=== PATIENT | male | born 1990 | race Caucasian/White ===

== ENCOUNTER 2020-07-27 19:44 | Emergency (ER) | payer BC, OTHER ==
[~2020-07-27] VITALS: Ht 177.8 cm; Wt 86.4 kg
--- NOTE | 2020-07-27 19:54 | ED GI ---
General Stated Complaint: FOOD STUCK IN THROAT Source of Information: Patient Exam Limitations: No Limitations History of Present Illness Date Seen by Provider: Jul 27, 2020 Time Seen by Provider: 19:45 Initial Comments Patient was eating some popcorn chicken just prior to arrival when he felt it " go into my lungs". He arrives to ER clutching his throat but breathing and retching. He did vomit in the waiting room. He felt like something got stuck last night as well. No history of GERD or esophageal food boluses or strictures. Does chew tobacco. The feels a little better at the time but still feels like there is something stuck in his throat. Timing/Duration: 1/2 Hour Severity/Quality: Severe Radiation: No Radiation Activities at Onset: None Associated Symptoms: Nausea/Vomiting Allergies and Home Medications Allergies Coded Allergies: No Known Drug Allergies (Unverified , 07/27/20) Patient Home Medication List Home Medication List Reviewed: Yes Review of Systems Review of Systems Constitutional: see HPI EENTM: No Symptoms Reported Respiratory: No Symptoms Reported Cardiovascular: No Symptoms Reported Gastrointestinal: See HPI Genitourinary: No Symptoms Reported Musculoskeletal: no symptoms reported Skin: no symptoms reported Psychiatric/Neurological: No Symptoms Reported Endocrine: No Symptoms Reported Hematologic/Lymphatic: No Symptoms Reported Physical Exam Vital Signs Capillary Refill : Height/Weight/BMI Height: '" Weight: lbs. oz. kg; BMI Method: General Appearance: WD/WN, no apparent distress, other (Swallows his own secretions, he is able to swallow water without regurgitation. He is able to swallow a GI cocktail without regurgitation. He has not drooling. There is no wheezing or stridor to suggest airway obstruction either. He did vomit a large amount of food particles/chunks in the waiting room. ) HEENT: PERRL/EOMI, normal ENT inspection Neck: non-tender, full range of motion Respiratory: no respiratory distress, no accessory muscle use Cardiovascular: regular rate, rhythm, no murmur Gastrointestinal: normal bowel sounds, non tender, soft Extremities: normal range of motion, non-tender Neurologic/Psychiatric: alert, normal mood/affect, oriented x 3 Skin: normal color, warm/dry Progress/Results/Core Measures Results/Orders My Orders Orders - BARON BA APRN Antacid Suspension (Mylanta Suspension (07/27/20 20:00) Lidocaine 2% Viscous 15 Ml (Xylocaine Vi (07/27/20 20:00) Lorazepam Injection (Ativan Injection) (07/27/20 20:00) Ed Iv/Invasive Line Start (07/27/20 19:52) Ct Chest Wo (07/27/20 20:01) Ondansetron Injection (Zofran Injectio (07/27/20 20:30) Ondansetron Injection (Zofran Injectio (07/27/20 20:15) Medications Given in ED Current Medications Medications Dose Ordered Sig/Shane Route Start Time Stop Time Status Last Admin Dose Admin Al Hydrox/Mg Hydrox/Simethicone 30 ml ONCE ONCE PO 07/27/20 20:00 07/27/20 20:01 DC 07/27/20 20:15 30 ML Lidocaine HCl 10 ml ONCE ONCE PO 07/27/20 20:00 07/27/20 20:01 DC 07/27/20 20:15 10 ML Lorazepam 0.5 mg ONCE PRN IVP 07/27/20 20:00 07/27/20 20:15 0.5 MG Ondansetron HCl 8 mg ONCE ONCE IVP 07/27/20 20:30 07/27/20 20:31 DC 07/27/20 20:22 8 MG Diagnostic Imaging Diagonstic Imaging: CT Departure Communication (Admissions) 2043-He does feel better at this time states that he almost feels like he is back to normal. He is not drooling he continues to sip on water without regurgitation and there is still no stridor or cough. He has not coughed at any point since he has been here. I spoke with Dr. Sewell who recommends that we can discharge home for outpatient follow-up for we can observe in the hospital overnight. Patient is not sure what he would like to do yet, offered him to just hang out here for about 30 minutes and see how he does. If the sensation comes back then we will admit, if he stays improved like this then he will go home. 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 2109-feeling better, would like to go on home. Impression Primary Impression: Esophageal spasm Disposition: HOME, SELF-CARE Condition: Improved Departure-Patient Inst. Decision time for Depature: 21:08 Referrals: OREN MOURA MD (PCP) Primary Care Physician BO SEWELL DO Patient Instructions: Dysphagia Add. Discharge Instructions: 1. Take an fmzj-npb-tvrikfc acid salesperson automobiles like omeprazole 2 tablets daily for the next 3 to 4 weeks. Try to reduce chewing tobacco. Return to ER for any worsening or recurrence. Soft diet such as pudding, bananas, mashed potatoes for the next 2 days. If you have any persistent symptoms give Dr. Sewell a call to discuss endoscopy where they can stick a camera down the esophagus to look for inflammation or strictures (narrowing). BARON BA APRN Jul 27, 2020 19:54
[2020-07-27] MEDS ORDERED: LORazepam INJ 2 MG/ML (ATIVAN) VIAL IVP PRN (20:00)
[2020-07-27] MEDS ORDERED: ANTACID SUSP 30 ML UDC (MYLANTA) PO ONE (20:00)
[2020-07-27] MEDS ORDERED: LIDOCAINE 2% VISCOUS 15 ML UDC PO ONE (20:00)
[2020-07-27] MEDS ORDERED: ONDANSETRON 4 MG/2 ML (SDV) Z0FRAN ONE (20:15)
[2020-07-27] MEDS ORDERED: ONDANSETRON 4 MG/2 ML (SDV) Z0FRAN IVP ONE (20:30)
--- NOTE | 2020-07-27 20:32 | Diagnostic Imaging Report ---
PROCEDURE: CT chest without contrast. TECHNIQUE: Multiple contiguous axial images were obtained through the chest without the use of intravenous contrast. Auto Exposure Controls were utilized during the CT exam to meet ALARA standards for radiation dose reduction. INDICATION: Choking, food caught in throat. COMPARISON: None. FINDINGS: The airway is clear including the trachea and the bronchi. No filling defect or debris is seen in the esophagus. There may be trace fluid in the distal esophagus. There is significant ingested material in the stomach. The heart is mildly large. There is a pericardial cyst near the apex of the heart measuring about 6.1 x 2.9 cm on axial imaging. There is no pericardial effusion. The aorta is normal in caliber. No mediastinal adenopathy is seen. There is no pleural effusion or pneumothorax. No focal consolidation is seen. There is a calcified granuloma in the left lung base. Imaged portions of the upper abdomen demonstrate no acute abnormality. No acute osseous abnormality is seen. IMPRESSION: 1. The airway is clear. There may be minimal fluid in the distal esophagus, but no solid structure or debris is seen. 2. Moderate-sized pericardial cyst. No pericardial effusion. Dictated by: Dictated on workstation # [id number]
[2020-07-27 21:15] VITALS: BP 126/89
== END 2020-07-27 21:15 | disposition home or self-care (01) ==
LOC: EDUNIT# 19:44 → ER 19:49
DX: K22.4 Dyskinesia of esophagus (principal)
CPT/HCPCS: 71250

== ENCOUNTER 2021-06-03 09:55 | Inpatient (IN) | payer OTHER ==
[~2021-06-03] VITALS: Ht 177 cm; Wt 99.0 kg
--- NOTE | 2021-06-03 10:12 | History & Physical ---
History of Present Illness History of Present Illness Reason for visit/HPI PT IS A 30 Y/O MALE WHO IS A PATIENT IN MY CLINIC. HE PRESENTED TO THE OFFICE TODAY WITH COMPLAINT OF SWELLING AND PAIN FROM A SORE IN HIS GROIN ON THE RIGHT. HE HAD A SIMILAR INFECTION ABOUT 3-4 WEEKS AGO - WAS TOLD IT WAS MRSA AND HE WAS GIVEN ORAL ANTIBIOTICS WHICH CAUSED THE LESION TO RESOLVE COMPLETELY. PAYAL REPORTS THAT HE STARTED TO HAVE AN INGROWN HAIR IN HIS GROIN ON THE RIGHT A ND THEN IT QUICKLY INCREASED IN SIZE AND DRAINED A LITTLE THEN THIS MORNING IT WAS SIGNIFICANTLY LARGER AND MORE PAINFUL. HE WAS EVALUATED IN THE OFFICE AND IT WAS DETERMINED THAT HE NEEDED IV ANTIBIOTICS FOR TREATMENT OF HIS INFECTION. Date of Admission 06/03/2021 Date Seen by a Provider: Jun 03, 2021 Time Seen by a Provider: 18:41 I consulted on this patient on 06/03/21 10:12 Attending Physician Sanket Song MD Admitting Physician Sanket Song MD Consult DR CHARLES Allergies and Home Medications Allergies Coded Allergies: No Known Drug Allergies (Unverified , 07/27/20) Patient Home Medication List Home Medication List Reviewed: Yes Dextroamphetamine/Amphetamine (Amphetamine Salts 15 mg Tablet) 15 Mg Tablet, 15 MG PO TID, (Reported) Entered as Reported by: ZION LYNNE on 06/03/211621 Last Action: Held Escitalopram Oxalate (Escitalopram Oxalate) 20 Mg Tablet, 20 MG PO HS, (Reported) Entered as Reported by: ZION LYNNE on 06/03/211621 Last Action: Converted Ibuprofen (Ibuprofen) 200 Mg Tablet, 400-600 MG PO Q8H PRN for PAIN-MILD (1-4), (Reported) Entered as Reported by: ZION LYNNE on 06/03/211621 Last Action: Held Past Qbkvzgc-Ylcweu-Njkjkn Hx Patient Social History Marrital Status: single Number of Children: 0 Number of living children: 0 Living Status: LIVES IN HOME WITH HIS DOG 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[employer]) Tobacco Use?: No Use of E-Cig and/or Vaping dev: No Seasonal Allergies Seasonal Allergies: No Current Status Advance Directives: No Communicates: Verbally Primary Language: Cook Islander Preferred Spoken Language: [place] Islander Is interpretation needed?: No Implanted or Applied Medical D: None Past Medical History Currently Using CPAP: No Currently Using BIPAP: No Sexually Transmitted Disease: No HIV/AIDS: No Loss of Vision: Denies Hearing Impairment: Denies Did You Recieve Any Treatments: No ADD/ADHD, Depression Family Medical History Reviewed and Corrections made Heart Disease, Hypertension Review of Systems Constitutional: No chills, No diaphoresis, No fever, No malaise; weakness EENTM: No hoarseness, No throat pain Respiratory: No cough, No dyspnea on exertion, No short of breath Cardiovascular: no symptoms reported Gastrointestinal: No abdominal pain, No constipation, No diarrhea, No nausea, No vomiting Genitourinary: no symptoms reported Musculoskeletal: no symptoms reported Skin: other (ERYTHEMA AND SPREADING HARDNESS TO RIGHT GROIN WITH PUSTULE) Psychiatric/Neurological: Anxiety, Depressed All Other Systems Reviewed Negative Unless Noted: Yes Physical Exam Vital Signs Vital Signs - First Documented 06/03/21 15:30 Temp 36.3 Pulse 77 Resp 20 B/P (MAP) 126/64 (84) Pulse Ox 97 O2 Delivery Room Air Capillary Refill : Height, Weight, BMI Height: '" Weight: lbs. oz. kg; 27.00 BMI Method: General Appearance: No Apparent Distress, WD/WN Eyes: Bilateral Eye Normal Inspection, Bilateral Eye PERRL, Bilateral Eye EOMI HEENT: PERRL/EOMI, Pharynx Normal Neck: Full Range of Motion, Non Tender, Supple Respiratory: Chest Non Tender, Lungs Clear, Normal Breath Sounds, No Respiratory Distress Cardiovascular: Regular Rate, Rhythm, No Edema, Normal Peripheral Pulses Gastrointestinal: Normal Bowel Sounds, No Organomegaly, No Pulsatile Mass, Non Tender, Soft Rectal: Deferred Back: Normal Inspection, No Vertebral Tenderness Extremity: Normal Capillary Refill, Normal Range of Motion, Non Tender, No Calf Tenderness, No Pedal Edema Neurologic/Psychiatric: Alert, Oriented x3, No Motor/Sensory Deficits, Normal Mood/Affect, crane chaser II-XII Norm as Tested Skin: Normal Color, Warm/Dry Lymphatic: No Adenopathy Assessment/Plan Assessment and Plan ABSCESS AND CELLULITIS OF RIGHT GROIN HX OF MRSA ANXIETY/DEPRESSION ADHD PAIN IN RIGHT GROIN ABSCESS AND CELLULITIS OF RIGHT GROIN WITH HX OF HX OF MRSA - IV VANCOMYCIN, PHARMACY TO DOSE BASED ON TROUGH. - MONITOR LABS, RENAL FUNCTION - WAITING ON CULTURE REPORT TREAT FOR PRESUMED COLONIZATION OF MRSA WITH MUPIROCIN ANXIETY/DEPRESSION - RESTART SSRI ADHD - HOLD HOME REGIMEN AT THIS TIME. PAIN IN RIGHT GROIN - IV MORPHINE - WAS Q2 HOURS ON ADMISSION - WILL CHANGE TO IV Q1 HOUR AND ADD HYDROCODONE PRN ORALLY FOR UNCONTROLLED PAIN - WILL EVENTUALLY TRANSITION TO ORAL HYDROCODONE ON DC. DVT PROPHYLAXIS WITH LOVENOX AND SCD'S GI PROPHYLAXIS WITH PPI AND PROBIOTICS Admission Diagnosis ABSCESS AND CELLULITIS OF RIGHT GROIN HX OF MRSA ANXIETY/DEPRESSION ADHD PAIN IN RIGHT GROIN Admission Status: Inpatient Order (span 2 midnights) Reason for Inpatient Admission: INPT ADMISSION FOR AT LEAST 48 TO 72 HOURS DEPENDING ON HIS CULTURE REPORT. SANKET SONG MD Jun 03, 2021 10:12
[2021-06-03] MEDS ORDERED: PHARMACY TO DOSE IV SCH (10:15)
[2021-06-03] MEDS ORDERED: PANTOPRAZOLE 40 MG (PROTONIX) VIAL IV NR (10:44)
[2021-06-03] MEDS: morphine INJ 4 MG/ML 1 ML (VIAL/SYRINGE) IVP PRN ×5 (11:30→20:26)
[2021-06-03] MEDS: ENOXAPARIN 40 MG/0.4 ML (LOVENOX) SYR SC SCH (11:31)
[2021-06-03] MEDS ORDERED: VANCOMYCIN 2000 MG/NS 500 ML IVPB IV NR ×2 (13:00)
--- NOTE | 2021-06-03 13:43 | Consultation - Surgery ---
ANALY ROMERO MED STUDENT 06/03/21 1343: History of Present Illness History of Present Illness Patient Consulted On(shirley/time) 06/03/21 13:36 Date Seen by Provider: Jun 03, 2021 Time Seen by Provider: 13:30 Reason for Visit: Abscess History of Present Illness Mr. Dover is a 30yo male patient of Dr. Song who was admitted to the hospital today due an abscess in his inguinal area that is presumed to be MRSA. He states that early in April he had some sores on his leg and in his armpit, he went to urgent care and they swabbed him and he was found to have MRSA. He received bactrim shots at the time and went through a course of abx, after which it did resolve. Yesterday morning he states he had a small bump on his pubic area that he thought was an ingrown hair. He squeezed it a bit and got some pus out of it. States that today it is much worse and has grown a lot. He saw Dr. Song who admitted him to [facility] today. He describes the lesion as painful, red, and hot. Swollen, pain about an 8-9 before morphine, has shooting pain when touched. He tried squeezing some pus out of it and using some triple abx ointment but no improvement. Touching it in any way makes it worse. He does complain of some chills last night but no fever. Denies nausea, vomiting, CP, SOB, abdominal pain, bowel or bladder changes, pain or swelling in the legs or feet. He has only had this once before in early April when he was able to clear it with the antibiotics. Allergies and Home Medications Allergies Coded Allergies: No Known Drug Allergies (Unverified , 07/27/20) Past Baskcey-Lbwjws-Jjdkmk Hx Patient Social History Smoking Status: Never a Smoker (Currently uses chewing tobacco) Type Used: Smokeless Tobacco 2nd Hand Smoke Exposure: No Recent Hopitalizations: No Alcohol Use?: No Have you traveled recently?: No Immunizations Up To Date Date of Influenza Vaccine: May 25, 2021 Seasonal Allergies Seasonal Allergies: No Surgeries History of Surgeries: Yes (ACL REPAIR) Surgeries: Orthopedic (ACL L Knee) Respiratory History of Respiratory Disorde: No Cardiovascular History of Cardiac Disorders: No Neurological History of Neurological Disord: No Genitourinary History of Genitourinary Disor: No Gastrointestinal History of Gastrointestinal Di: No Musculoskeletal History of Musculoskeletal Dis: Yes (ACL REPAIR ) Cancer History of Cancer: No Psychosocial History of Psychiatric Problem: Yes Behavioral Health Disorders: ADD/ADHD, Depression Integumentary History of Skin or Integumenta: No Family Medical History Significant Family History: Cancer (Throat Cancer in father), Hypertension Review of Systems-General Constitutional: chills; No dizziness, No fever EENTM: No hearing loss, No vision loss Respiratory: No cough, No phlegm, No short of breath Gastrointestinal: No abdominal pain, No constipation, No diarrhea, No melena, No nausea, No vomiting Genitourinary: No dysuria, No frequency, No hematuria Musculoskeletal: other (Denies leg pain or swelling) Skin: lesions (R groin) Psychiatric/Neurological: Denies Headache Physical Exam-General Problems Physical Exam Vital Signs Capillary Refill : General Appearance: WD/WN, no apparent distress HEENT: pharynx normal (moist) Respiratory: chest non-tender, lungs clear, normal breath sounds, no respiratory distress, no accessory muscle use Cardiovascular: regular rate, rhythm, no edema, no murmur Peripheral Pulses: 2+ Dorsalis Pedis (R), 2+ Left Dors-Pedis (L), 2+ Radial Pulses (R), 2+ Radial Pulses (L) Gastrointestinal: normal bowel sounds, non tender, soft Extremities: non-tender, normal inspection, no pedal edema, no calf tenderness Neurologic/Psychiatric: alert, normal mood/affect, oriented x 3 Skin: normal color, warm/dry, other (on R inguinal area there is an area of swelling and fluctuance about the size of a golfball. Is red and hot, painful to touch.) Assessment/Plan Assessment/Plan Assessment/Plan R inguinal cyst History of MRSA Patient would likely benefit from I&D of lesion, will do at bedside. It will need to be packed. He is currently on Vancomycin. Is on morphine for pain and he states it was working well for him. No fever, no sign of systemic infection at this point but will monitor. Will stay for a couple days of ABX. DEREJE CHARLES DO 06/03/21 154: History of Present Illness History of Present Illness Time Seen by Provider: 13:38 History of Present Illness Surgery asked to consult regarding right inguinal abscess. Pt is a 30 yo male with hx of MRSA infections of his skin. States yesterday he had "a white bump" in the groin area and tried to "pop" it. This morning he woke up and it was very red and much larger. Pain was rated as 9 out of 10, only improved with pain medications. He ate a sausage biscuit around 9am this morning. Stated the area was "hot and swollen". Allergies and Home Medications Allergies Coded Allergies: No Known Drug Allergies (Unverified , 07/27/20) Patient Home Medication List Home Medication List Reviewed: Yes Past Amtqure-Cpiueh-Vessex Hx Patient Social History Smoking Status: Never a Smoker (Currently uses chewing tobacco) Type Used: Smokeless Tobacco Alcohol Use?: No Surgeries History of Surgeries: Yes Surgeries: Orthopedic (ACL L Knee) Respiratory History of Respiratory Disorde: No Cardiovascular History of Cardiac Disorders: No Neurological History of Neurological Disord: No Reproductive System Hx Reproductive Disorders: No Genitourinary History of Genitourinary Disor: No Gastrointestinal History of Gastrointestinal Di: No Musculoskeletal History of Musculoskeletal Dis: No Endocrine History of Endocrine Disorders: No HEENT History of HEENT Disorders: No Loss of Vision: Denies Hearing Impairment: Denies Cancer History of Cancer: No Psychosocial History of Psychiatric Problem: Yes Behavioral Health Disorders: ADD/ADHD, Depression Integumentary History of Skin or Integumenta: Yes (MRSA infections) Family Medical History Significant Family History: Cancer (Throat Cancer in father) Review of Systems-General Constitutional: chills; No dizziness, No fever EENTM: No hearing loss, No vision loss Respiratory: No cough, No phlegm, No short of breath Cardiovascular: No chest pain, No palpitations Gastrointestinal: No abdominal pain, No constipation, No diarrhea, No melena, No nausea, No vomiting Genitourinary: No dysuria, No frequency, No hematuria Musculoskeletal: No joint pain, No joint swelling Skin: lesions (R groin) Psychiatric/Neurological: Depressed; Denies Headache, Denies Seizure Physical Exam-General Problems Physical Exam General Appearance: WD/WN, no apparent distress Eyes: Bilateral Eye PERRL, Bilateral Eye EOMI HEENT: pharynx normal (moist); No scleral icterus (R), No scleral icterus (L) Neck: non-tender, supple Respiratory: lungs clear, normal breath sounds, no respiratory distress, no accessory muscle use Cardiovascular: regular rate, rhythm Gastrointestinal: normal bowel sounds, non tender, soft Extremities: non-tender, normal inspection, no pedal edema, no calf tenderness Neurologic/Psychiatric: director center II-XII nml as tested, alert, normal mood/affect, oriented x 3 Skin: normal color, warm/dry, other (on R inguinal area there is an area of swelling and fluctuance about the size of a golfball. Is red and hot, painful to touch.) Lymphatic: no adenopathy (neck or axilla) Assessment/Plan Assessment/Plan Assessment/Plan R inguinal Cellulitis/Abscess History of MRSA Patient would likely benefit from I&D of lesion, he ate and therefore can not do in the OR for 8 hours. Offered to do at bedside and he agreed; "let's get this over with sooner". It will need to be packed. He is currently on Vancomycin. Is on morphine for pain and he states it was working well for him. No fever, no sign of systemic infection at this point but will monitor. Will probably stay for a couple days of IV ABX. Will get wound culture. Supervisory-Addendum Brief Verification & Attestation Participated in pt care: history, MDM, physical Personally performed: exam, history, MDM, supervision of care Care discussed with: Medical Student Procedures: n/a Verification and Attestation of Medical Student E/M Service A medical student performed and documented this service. I then reviewed and verified all information documented by the medical student and made modifications to such information, when appropriate. I personally performed a physical exam, medical decision making and then discussed any differences between the notes and made revisions as necessary to create one note. Dereje Charles , 06/03/21 , 15:43 ANALY ROMERO MED STUDENT Jun 03, 2021 13:43 DEREJE CHARLES DO Jun 03, 2021 15:41
[2021-06-03] MEDS ORDERED: LIDOCAINE 1% INJ 20 ML 20 ML VIAL ONE (13:49)
[2021-06-03 14:39] LABS: BASOPHILS % (AUTO) 0 % (0-10); EOSINOPHILS # (AUTO) 0.2 10^3/uL (0.0-0.3); EOSINOPHILS % (AUTO) 2 % (0-10); HEMATOCRIT 40 % (40-54); HEMOGLOBIN 14.1 g/dL (13.3-17.7); LYMPHOCYTES # (AUTO) 1.6 10^3/uL (1.0-4.0); LYMPHOCYTES % (AUTO) 16 % (12-44); MEAN CORPUSCULAR HEMOGLOBIN 32 pg (25-34); MEAN CORPUSCULAR HGB CONC 35 g/dL (32-36); MEAN CORPUSCULAR VOLUME 91 fL (80-99); MEAN PLATELET VOLUME 10.1 fL (9.0-12.2); MONOCYTES # (AUTO) 0.9 10^3/uL (0.0-1.0); MONOCYTES % (AUTO) 9 % (0-12); NEUTROPHILS # (AUTO) 7.2 10^3/uL (1.8-7.8); NEUTROPHILS % (AUTO) 73 % (42-75); PLATELET COUNT 293 10^3/uL (130-400)
[2021-06-03 14:58] LABS: ALBUMIN 4.3 GM/DL (3.2-4.5); BILIRUBIN,TOTAL 0.5 MG/DL (0.1-1.0); CALCIUM 9.3 MG/DL (8.5-10.1); CREATININE SERUM 0.68 MG/DL (0.60-1.30); POTASSIUM 3.8 MMOL/L (3.6-5.0); PROTHROMBIN TIME PATIENT 13.1 SEC (12.2-14.7); TOTAL PROTEIN 7.5 GM/DL (6.4-8.2)
[2021-06-03] MEDS: LACTOBACILLUS ACIDOPHILUS (PROBIOTIC) CAPSULE PO SCH ×2 (15:00→20:26)
[2021-06-03 15:30] VITALS: BP 126/64
--- NOTE | 2021-06-03 15:48 | Progress Note-Post Operative ---
Post-Operative Progess Note Surgeon (s)/Director Of Casework (s) Surgeon BO CHARLES DO Director Of Casework: none Pre-Operative Diagnosis right inguinal cellulitis/abscess Post-Operative Diagnosis same pending culture Procedure & Operative Findings Date of Procedure 06/03/21 Procedure Performed/Findings I&D with packing Anesthesia Type local lidocaine Estimated Blood Loss Estimated blood loss (mL): less than 5ml Specimens/Packing Specimens Removed wound culture Packin BO CHARLES DO Jun 03, 2021 15:48
[2021-06-03] MEDS ORDERED: DEXT15TA PO (16:22)
[2021-06-03] MEDS ORDERED: ESCI20TA39 PO (16:22)
[2021-06-03] MEDS ORDERED: IBUP-2473 PO (16:22)
[2021-06-03] MEDS ORDERED: morphine INJ 4 MG/ML 1 ML (VIAL/SYRINGE) ONE (20:19)
[2021-06-03 20:25] VITALS: BP 116/69
[2021-06-03] MEDS: VANCOMYCIN 1500 MG/NS 500 ML IVPB IV SCH ×2 (20:26)
[2021-06-03] MEDS: MUPIROCIN 2% OINT 22 GM (BACTROBAN) TUBE NSEACH SCH (21:15)
[2021-06-03 23:25] VITALS: BP 122/73
[2021-06-04] MEDS: morphine INJ 4 MG/ML 1 ML (VIAL/SYRINGE) IVP PRN ×6 (00:24→23:41)
--- NOTE | 2021-06-04 01:24 | OPERATIVE REPORT ---
DATE OF SERVICE: 06/03/2021 PREOPERATIVE DIAGNOSIS: Right inguinal cellulitis, abscess. POSTOPERATIVE DIAGNOSIS: Right inguinal cellulitis, abscess, pending culture. PROCEDURE: Incision and drainage with packing of right inguinal abscess. ANESTHESIA: Local lidocaine. BLOOD LOSS: Less than 5 mL. SPECIMEN: Wound culture. FLUIDS: Minimal. POSTOPERATIVE CONDITION: Stable. INDICATION FOR PROCEDURE: The patient is a 30-year-old male, who has right inguinal abscess, cellulitis, had gotten worse overnight. He had eaten breakfast this morning, but since therefore could not go to the OR for 8 hours, wanted to have this done sooner rather than later. FINDINGS: The patient had scant purulent fluid in the right inguinal area. Culture obtained. PROCEDURE NOTE: After informed consent was obtained, the patient was in his bed in the room. He was sterilely prepped and draped in normal fashion. Local lidocaine was used to infiltrate the skin. There was a small scar from his previous attempt to trying to drain this. While we were injecting lidocaine, there was some what looked like whitish fluid coming out with some of the lidocaine. Once we got a good application of the lidocaine, had some blanching of the skin and then elected to make a stab incision with #11 blade, carried down through the skin into subcutaneous tissue, cut out some of this very scant purulent fluid, used a wound culture tube to get a culture. This was then sent down to pathology, broke up a little bit of loculation with blunt dissection. Did not really get very much purulent fluid and there was a little bit of bleeding, packed with half inch iodoform packing and then pressure dressing placed. Area was cleaned and dried. The patient tolerated the procedure. He was given some morphine prior to the procedure for pain control. Job ID: [id number] DocumentID: [id number] Dictated Date: 06/03/2021 15:47:47 Clinical Nurse Date: 06/04/2021 01:24:08 Dictated By: BO CHARLES DO
[2021-06-04 03:55] VITALS: BP 121/69
[2021-06-04 07:25] LABS: HEMATOCRIT 42 % (40-54); HEMOGLOBIN 14.5 g/dL (13.3-17.7); MEAN CORPUSCULAR HEMOGLOBIN 32 pg (25-34); MEAN CORPUSCULAR HGB CONC 34 g/dL (32-36); MEAN CORPUSCULAR VOLUME 92 fL (80-99); MEAN PLATELET VOLUME 9.9 fL (9.0-12.2); PLATELET COUNT 253 10^3/uL (130-400); WHITE BLOOD COUNT 6.7 10^3/uL (4.3-11.0)
[2021-06-04 07:32] LABS: ALBUMIN 4.1 GM/DL (3.2-4.5)
[2021-06-04 07:33] LABS: POTASSIUM 3.9 MMOL/L (3.6-5.0)
[2021-06-04 07:34] LABS: CALCIUM 9.5 MG/DL (8.5-10.1)
[2021-06-04 07:35] LABS: TOTAL PROTEIN 7.3 GM/DL (6.4-8.2)
[2021-06-04 07:37] LABS: BILIRUBIN,TOTAL 0.8 MG/DL (0.1-1.0)
[2021-06-04 07:39] LABS: CREATININE SERUM 0.71 MG/DL (0.60-1.30)
--- NOTE | 2021-06-04 08:29 | Progress Note - Surgery ---
ANALY ROMERO MED STUDENT 06/04/21 0829: Subjective Date Seen by a Provider: Jun 04, 2021 Time Seen by a Provider: 08:10 Subjective/Events-last exam Mr. Dover is sitting up in bed this morning. States he is still having some pain in his groin, about the same as yesterday. Wound has been dressed so he has not looked at it to see if it is getting better. He is eating and drinking with no nausea and vomiting. He is peeing without difficulty, had not had BM yet but he said this is normal for him. He ambulates, states he has some pain in his groin when he walks. He has no concerns today. Review of Systems General: No Chills HEENT: No Head Aches, No Visual Changes Pulmonary: No Dyspnea, No Cough Cardiovascular: No: Chest Pain, Palpitations, Edema Gastrointestinal: No: Nausea, Vomiting, Abdominal Pain, Diarrhea, Constipation, Melena Genitourinary: No Dysuria, No Incontinence, No Hematuria Musculoskeletal: No: leg pain, foot pain Neurological: No: Weakness Objective Exam Vital Signs Date Time Temp Pulse Resp B/P (MAP) Pulse Ox O2 Delivery O2 Flow Rate FiO2 06/04/21 03:55 37.0 76 16 121/69 (86) 98 Room Air 06/03/21 23:25 37.2 73 16 122/73 (89) 97 Room Air 06/03/21 20:25 36.0 65 20 116/69 (85) 97 Room Air 06/03/21 20:15 97 Room Air 06/03/21 15:30 36.3 77 20 126/64 (84) 97 Room Air I & O 06/04/21 07:00 Intake Total 3045 ml Balance 3045 ml Capillary Refill : General Appearance: No Apparent Distress, WD/WN HEENT: PERRL/EOMI, Pharynx Normal Respiratory: Chest Non Tender, Lungs Clear, Normal Breath Sounds, No Respiratory Distress Cardiovascular: Regular Rate, Rhythm, No Edema, Normal Peripheral Pulses Peripheral Pulses: 2+ Dorsalis Pedis (R), 2+ Left Dors-Pedis (L), 2+ Radial Pulses (R), 2+ Radial Pulses (L) Gastrointestinal: normal bowel sounds, non tender, soft Extremity: Normal Capillary Refill, Non Tender, No Calf Tenderness, No Pedal Edema Neurologic/Psychiatric: Alert, Oriented x3, Normal Mood/Affect Skin: Normal Color, Warm/Dry, Other (Cyst on groin is bandaged. There is quite a bit of blood with minimal pus in the [place]. Still a good amount of redness and swelling. brick tender to the touch. Is still packed. ) Lymphatic: No Adenopathy Results Lab Laboratory Tests 06/03/21 14:28: White Blood Count 10.0, Red Blood Count 4.42, Hemoglobin 14.1, Hematocrit 40, Mean Corpuscular Volume 91, Mean Corpuscular Hemoglobin 32, Mean Corpuscular Hemoglobin Concent 35, Red Cell Distribution Width 13.1, Platelet Count 293, Mean Platelet Volume 10.1, Immature Granulocyte % (Auto) 0, Neutrophils (%) (Auto) 73, Lymphocytes (%) (Auto) 16, Monocytes (%) (Auto) 9, Eosinophils (%) (Auto) 2, Basophils (%) (Auto) 0, Neutrophils # (Auto) 7.2, Lymphocytes # (Auto) 1.6, Monocytes # (Auto) 0.9, Eosinophils # (Auto) 0.2, Basophils # (Auto) 0.0, Immature Granulocyte # (Auto) 0.0, Prothrombin Time 13.1, INR Comment 1.0, Sodium Level 138, Potassium Level 3.8, Chloride Level 105, Carbon Dioxide Level 20L, Anion Gap 13, Blood Urea Nitrogen 14, Creatinine 0.68, Estimat Glomerular Filtration Rate 139, BUN/Creatinine Ratio 21, Glucose Level 90, Calcium Level 9.3, Corrected Calcium 9.1, Total Bilirubin 0.5, Aspartate Amino Transf (AST/SGOT) 19, Alanine Aminotransferase (ALT/SGPT) 37, Alkaline Phosphatase 83, Total Protein 7.5, Albumin 4.3 06/04/21 06:45: White Blood Count 6.7, Red Blood Count 4.59, Hemoglobin 14.5, Hematocrit 42, Mean Corpuscular Volume 92, Mean Corpuscular Hemoglobin 32, Mean Corpuscular Hemoglobin Concent 34, Red Cell Distribution Width 13.0, Platelet Count 253, Mean Platelet Volume 9.9, Sodium Level 137, Potassium Level 3.9, Chloride Level 103, Carbon Dioxide Level 24, Anion Gap 10, Blood Urea Nitrogen 10, Creatinine 0.71, Estimat Glomerular Filtration Rate 132, BUN/Creatinine Ratio 14, Glucose Level 86, Calcium Level 9.5, Corrected Calcium 9.4, Total Bilirubin 0.8, Aspartate Amino Transf (AST/SGOT) 51H, Alanine Aminotransferase (ALT/SGPT) 90H, Alkaline Phosphatase 85, Total Protein 7.3, Albumin 4.1 Assessment/Plan Assessment/Plan Assessment/Plan R inguinal Cellulitis/Abscess History of MRSA Continue dressing changes, and will re-pack today. Lesion looks about the same, but does not look any worse. He is still having some tenderness with it. He is on PRN morphine and hydrocodone for this. Still hasn't had a bowel movement but he states it is normal for him and suspects he will have one soon. Will monitor due to his pain meds but he is receiving stool softeners. He is currently on Vancomycin. No fever, no sign of systemic infection at this point but will monitor. Wound culture obtained yesterday, no results yet. Will need to stay a couple more days to receive ABX and wound care. DEREJE SEWELL DO 06/04/21 1305: Subjective Time Seen by a Provider: 11:12 Subjective/Events-last exam Pt seen and examined, states he thinks his pain is a little better. 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 ) Assessment/Plan Assessment/Plan Assessment/Plan R inguinal Cellulitis/Abscess History of MRSA Continue dressing changes and re-pack today. Lesion looks much better. He is still having some tenderness with it. He is on PRN morphine and hydrocodone for this. Continue Vancomycin and wound care. Supervisory-Addendum Brief Verification & Attestation Participated in pt care: history, MDM, physical Personally performed: exam, history, MDM, supervision of care Care discussed with: Medical Student Procedures: n/a Verification and Attestation of Medical Student E/M Service A medical student performed and documented this service. I then reviewed and verified all information documented by the medical student and made modifications to such information, when appropriate. I personally performed a physical exam, medical decision making and then discussed any differences between the notes and made revisions as necessary to create one note. Dereje Sewell , 06/04/21 , 13:05 ANALY ROMERO MED STUDENT Jun 04, 2021 08:29 DEREJE SEWELL DO Jun 04, 2021 13:05
[2021-06-04 08:51] VITALS: BP 118/56
[2021-06-04] MEDS: PANTOPRAZOLE 40 MG (PROTONIX) VIAL IV SCH (09:33)
[2021-06-04] MEDS: VANCOMYCIN 1500 MG/NS 500 ML IVPB IV SCH ×4 (09:33→21:05)
[2021-06-04] MEDS: MUPIROCIN 2% OINT 22 GM (BACTROBAN) TUBE NSEACH SCH ×2 (09:33→21:11)
[2021-06-04] MEDS: ENOXAPARIN 40 MG/0.4 ML (LOVENOX) SYR SC SCH (09:34)
[2021-06-04] MEDS: SENNA W/DOCUSATE (SENOKOT S) TABLET PO SCH (09:34)
[2021-06-04] MEDS: LACTOBACILLUS ACIDOPHILUS (PROBIOTIC) CAPSULE PO SCH ×3 (09:34→21:06)
--- NOTE | 2021-06-04 10:19 | Progress Note ---
Subjective Subjective Date Seen by Provider: Jun 04, 2021 Time Seen by Provider: 09:00 PT REPORTS THAT HIS GROIN IS A LITTLE BIT BETTER THAN ON ADMISSION. HE NOTES IMPROVED PAIN CONTROL. HE DENIES ABDOMINAL PAIN, NAUSEA, URINARY CONCERNS Review of Systems General: No Chills HEENT: No Head Aches, No Visual Changes Pulmonary: No Dyspnea, No Cough Cardiovascular: No: Chest Pain, Palpitations, Edema Gastrointestinal: No: Nausea, Vomiting, Abdominal Pain, Diarrhea, Constipation, Melena Genitourinary: No Dysuria, No Incontinence, No Hematuria Musculoskeletal: No: leg pain, foot pain Neurological: No: Weakness All Other Systems Reviewed All Other Systems Reviewed: Yes Objective Exam Vital Signs Vital Signs Date Time Temp Pulse Resp B/P (MAP) Pulse Ox O2 Delivery O2 Flow Rate FiO2 06/04/21 08:51 36.0 60 16 118/56 (76) 97 06/04/21 03:55 37.0 76 16 121/69 (86) 98 Room Air 06/03/21 23:25 37.2 73 16 122/73 (89) 97 Room Air 06/03/21 20:25 36.0 65 20 116/69 (85) 97 Room Air 06/03/21 20:15 97 Room Air 06/03/21 15:30 36.3 77 20 126/64 (84) 97 Room Air I & O 06/04/21 07:00 Intake Total 3045 ml Balance 3045 ml General Appearance: No Apparent Distress, WD/WN Eyes: Bilateral Eye Normal Inspection, Bilateral Eye PERRL, Bilateral Eye EOMI HEENT: PERRL/EOMI, Pharynx Normal Respiratory: Chest Non Tender, Lungs Clear, Normal Breath Sounds, No Respiratory Distress Cardiovascular: Regular Rate, Rhythm, No Edema, Normal Peripheral Pulses Gastrointestinal: Normal Bowel Sounds, No Organomegaly, No Pulsatile Mass, Non Tender, Soft Rectal: Deferred Extremity: Normal Capillary Refill, Non Tender, No Calf Tenderness, No Pedal Edema Neurologic/Psychiatric: Alert, Oriented x3, Normal Mood/Affect Skin: Warm/Dry, Other (BLOOD ON BANDAGE, WITH PACKING STILL IN PLACE IN RIGHT GROIN WOUND, ERYTHEMA SIGNIFICANTLY IMPROVED FROM ADMISSION, LESS TENDER THAN ON ADMISSION) Lymphatic: No Adenopathy Results Lab Laboratory Tests 06/03/21 14:28: White Blood Count 10.0, Red Blood Count 4.42, Hemoglobin 14.1, Hematocrit 40, Mean Corpuscular Volume 91, Mean Corpuscular Hemoglobin 32, Mean Corpuscular Hemoglobin Concent 35, Red Cell Distribution Width 13.1, Platelet Count 293, Mean Platelet Volume 10.1, Immature Granulocyte % (Auto) 0, Neutrophils (%) (Auto) 73, Lymphocytes (%) (Auto) 16, Monocytes (%) (Auto) 9, Eosinophils (%) (Auto) 2, Basophils (%) (Auto) 0, Neutrophils # (Auto) 7.2, Lymphocytes # (Auto) 1.6, Monocytes # (Auto) 0.9, Eosinophils # (Auto) 0.2, Basophils # (Auto) 0.0, Immature Granulocyte # (Auto) 0.0, Prothrombin Time 13.1, INR Comment 1.0, Sodium Level 138, Potassium Level 3.8, Chloride Level 105, Carbon Dioxide Level 20L, Anion Gap 13, Blood Urea Nitrogen 14, Creatinine 0.68, Estimat Glomerular Filtration Rate 139, BUN/Creatinine Ratio 21, Glucose Level 90, Calcium Level 9.3, Corrected Calcium 9.1, Total Bilirubin 0.5, Aspartate Amino Transf (AST/SGOT) 19, Alanine Aminotransferase (ALT/SGPT) 37, Alkaline Phosphatase 83, Total Protein 7.5, Albumin 4.3 06/04/21 06:45: White Blood Count 6.7, Red Blood Count 4.59, Hemoglobin 14.5, Hematocrit 42, Mean Corpuscular Volume 92, Mean Corpuscular Hemoglobin 32, Mean Corpuscular Hemoglobin Concent 34, Red Cell Distribution Width 13.0, Platelet Count 253, Mean Platelet Volume 9.9, Sodium Level 137, Potassium Level 3.9, Chloride Level 103, Carbon Dioxide Level 24, Anion Gap 10, Blood Urea Nitrogen 10, Creatinine 0.71, Estimat Glomerular Filtration Rate 132, BUN/Creatinine Ratio 14, Glucose Level 86, Calcium Level 9.5, Corrected Calcium 9.4, Total Bilirubin 0.8, Aspartate Amino Transf (AST/SGOT) 51H, Alanine Aminotransferase (ALT/SGPT) 90H, Alkaline Phosphatase 85, Total Protein 7.3, Albumin 4.1 Assessment/Plan Assessment/Plan Admission Dx ABSCESS AND CELLULITIS OF RIGHT GROIN HX OF MRSA ANXIETY/DEPRESSION ADHD PAIN IN RIGHT GROIN Assessment and Plan ABSCESS AND CELLULITIS OF RIGHT GROIN HX OF MRSA ANXIETY/DEPRESSION ADHD PAIN IN RIGHT GROIN ELEVATED LFT'S ABSCESS AND CELLULITIS OF RIGHT GROIN WITH HX OF HX OF MRSA - IV VANCOMYCIN, PHARMACY TO DOSE BASED ON TROUGH. - MONITOR LABS, RENAL FUNCTION - WAITING ON CULTURE REPORT TREAT FOR PRESUMED COLONIZATION OF MRSA WITH MUPIROCIN ANXIETY/DEPRESSION - RESTARTED SSRI ADHD - HOLD HOME REGIMEN AT THIS TIME. PAIN IN RIGHT GROIN - IV MORPHINE - WAS Q2 HOURS ON ADMISSION - WILL CHANGE TO IV Q1 HOUR AND ADD HYDROCODONE PRN ORALLY FOR UNCONTROLLED PAIN - WILL EVENTUALLY TRANSITION TO ORAL HYDROCODONE ON DC. ELEVATED LFT'S - MONITOR LABS IN MORNING DVT PROPHYLAXIS WITH LOVENOX AND SCD'S GI PROPHYLAXIS WITH PPI AND PROBIOTICS Admission Dx ABSCESS AND CELLULITIS OF RIGHT GROIN HX OF MRSA ANXIETY/DEPRESSION ADHD PAIN IN RIGHT GROIN Clinical Quality Measures Admission Status Admission Dx ABSCESS AND CELLULITIS OF RIGHT GROIN HX OF MRSA ANXIETY/DEPRESSION ADHD PAIN IN RIGHT GROIN SANKET RED MD Jun 04, 2021 10:19
[2021-06-04] MEDS: HYDROcodone/APAP 7.5 MG/325 MG (LORTAB, LORCET PLUS) TABLET PO PRN ×3 (10:32→22:42)
[2021-06-04 12:08] VITALS: BP 120/65
[2021-06-04 16:00] VITALS: BP 113/67
[2021-06-04] MEDS ORDERED: TROUGH ORDER-PHARMACY XX ONE (19:00)
[2021-06-04 20:00] VITALS: BP 125/70
[2021-06-05 00:55] VITALS: BP 128/71
[2021-06-05 06:28] LABS: HEMATOCRIT 40 % (40-54); MEAN CORPUSCULAR HEMOGLOBIN 32 pg (25-34); MEAN CORPUSCULAR HGB CONC 35 g/dL (32-36); MEAN CORPUSCULAR VOLUME 90 fL (80-99); MEAN PLATELET VOLUME 9.7 fL (9.0-12.2); PLATELET COUNT 259 10^3/uL (130-400); WHITE BLOOD COUNT 5.4 10^3/uL (4.3-11.0)
[2021-06-05 06:43] LABS: ALBUMIN 4.1 GM/DL (3.2-4.5); POTASSIUM 3.7 MMOL/L (3.6-5.0)
[2021-06-05 06:44] LABS: CALCIUM 9.7 MG/DL (8.5-10.1)
[2021-06-05 06:45] LABS: TOTAL PROTEIN 7.4 GM/DL (6.4-8.2)
[2021-06-05 06:47] LABS: BILIRUBIN,TOTAL 0.4 MG/DL (0.1-1.0)
[2021-06-05 06:49] LABS: CREATININE SERUM 0.69 MG/DL (0.60-1.30)
[2021-06-05] MEDS: HYDROcodone/APAP 7.5 MG/325 MG (LORTAB, LORCET PLUS) TABLET PO PRN ×3 (08:02→15:47)
[2021-06-05] MEDS: LACTOBACILLUS ACIDOPHILUS (PROBIOTIC) CAPSULE PO SCH ×2 (08:02→11:53)
[2021-06-05] MEDS: VANCOMYCIN 1500 MG/NS 500 ML IVPB IV SCH ×4 (08:02→17:49)
[2021-06-05] MEDS: PANTOPRAZOLE 40 MG (PROTONIX) VIAL IV SCH (08:03)
[2021-06-05] MEDS: MUPIROCIN 2% OINT 22 GM (BACTROBAN) TUBE NSEACH SCH (08:03)
[2021-06-05] MEDS: SENNA W/DOCUSATE (SENOKOT S) TABLET PO SCH (08:03)
--- NOTE | 2021-06-05 08:27 | Progress Note - Surgery ---
ANALY ROMERO MED STUDENT 06/05/21 0827: Subjective Date Seen by a Provider: Jun 05, 2021 Time Seen by a Provider: 07:40 Subjective/Events-last exam Mr. Dover is sleeping in bed this morning and is easily woken. He states that his pain is doing better, still comes on a bit sometimes but pain meds help a lot. Eating and drinking with no nausea or vomiting. No dysuria, no bowel concerns. Walking around just fine. He has a new dressing on his wound this morning. He states it looks better. Redness is continuing to go down, there is some blood and minor pus draining. Size has decreased a lot. Continuing on abx. Review of Systems General: No Chills HEENT: No Head Aches, No Visual Changes, No Ear Pain Pulmonary: No Dyspnea, No Cough Cardiovascular: No: Chest Pain, Palpitations, Edema Gastrointestinal: No: Nausea, Vomiting, Abdominal Pain, Diarrhea, Constipation, Melena Genitourinary: No Dysuria, No Hematuria Musculoskeletal: No: leg pain, foot pain Neurological: No: Weakness Pain and lesion in R groin Objective Exam Vital Signs Date Time Temp Pulse Resp B/P (MAP) Pulse Ox O2 Delivery O2 Flow Rate FiO2 06/05/21 00:55 36.6 72 18 128/71 (90) 96 Room Air 06/04/21 20:00 77 16 125/70 (88) 96 Room Air 06/04/21 20:00 Room Air 06/04/21 16:00 36.2 51 18 113/67 (82) 97 Room Air 06/04/21 12:08 36.0 59 16 120/65 (83) 97 Room Air 06/04/21 08:51 36.0 60 16 118/56 (76) 97 I & O 06/05/21 07:00 Intake Total 2932 ml Output Total 7 ml Balance 2925 ml Capillary Refill : General Appearance: No Apparent Distress, WD/WN HEENT: PERRL/EOMI, Pharynx Normal Respiratory: Chest Non Tender, Lungs Clear, Normal Breath Sounds, No Accessory Muscle Use, No Respiratory Distress Cardiovascular: Regular Rate, Rhythm, No Edema, No Murmur, Normal Peripheral Pulses Peripheral Pulses: 2+ Dorsalis Pedis (R), 2+ Left Dors-Pedis (L), 2+ Radial Pulses (R), 2+ Radial Pulses (L) Gastrointestinal: normal bowel sounds, non tender, soft Extremity: Normal Capillary Refill, Non Tender, No Calf Tenderness, No Pedal Edema Neurologic/Psychiatric: Alert, Oriented x3, Normal Mood/Affect Skin: Normal Color, Warm/Dry, Other (Area looks much better with very little redness; Swelling has decreased a bit, tender to touch. Mostly blood but some pus drainage. Dressed.) Results Lab Laboratory Tests 06/04/21 18:55: Vancomycin Level Trough 9.8L 06/05/21 06:19: White Blood Count 5.4, Red Blood Count 4.43, Hemoglobin 14.0, Hematocrit 40, Mean Corpuscular Volume 90, Mean Corpuscular Hemoglobin 32, Mean Corpuscular Hemoglobin Concent 35, Red Cell Distribution Width 12.3, Platelet Count 259, Ladi n Platelet Volume 9.7, Sodium Level 135, Potassium Level 3.7, Chloride Level 102, Carbon Dioxide Level 24, Anion Gap 9, Blood Urea Nitrogen 11, Creatinine 0.69, Estimat Glomerular Filtration Rate 137, BUN/Creatinine Ratio 16, Glucose Level 99, Calcium Level 9.7, Corrected Calcium 9.6, Total Bilirubin 0.4, Aspartate Amino Transf (AST/SGOT) 41H, Alanine Aminotransferase (ALT/SGPT) 96H, Alkaline Phosphatase 80, Total Protein 7.4, Albumin 4.1 Microbiology 06/03/21 Blood Culture - Preliminary, Resulted No growth Assessment/Plan Assessment/Plan Assessment/Plan R inguinal Cellulitis/Abscess History of MRSA Continue dressing changes and re-pack today. Lesion looks much better. He is still having some tenderness with it. He is on PRN morphine and hydrocodone for this. Continue Vancomycin and wound care. Can discharge as soon as he has completed his abx. BO CHARLES DO 06/05/21 1518: Supervisory-Addendum Brief Verification & Attestation Participated in pt care: other Personally performed: other Care discussed with: Medical Student Procedures: n/a I did not see pt, thought he had already left. Apparently he is waiting to get last dose of ABX, can follow up in my office. ANALY ROMERO MED STUDENT Jun 05, 2021 08:27 BO CHARLES DO Jun 05, 2021 15:18
[2021-06-05 08:47] VITALS: BP 131/76
[2021-06-05] MEDS: morphine INJ 4 MG/ML 1 ML (VIAL/SYRINGE) IVP PRN ×2 (09:50→17:49)
--- NOTE | 2021-06-05 10:50 | Discharge Summary ---
Diagnosis/Chief Complaint Date of Admission Jun 03, 2021 at 10:37 Date of Discharge Discharge Date: Jun 05, 2021 Discharge Time: 17:30 Admission Diagnosis Admission Diagnosis ABSCESS AND CELLULITIS OF RIGHT GROIN HX OF MRSA ANXIETY/DEPRESSION ADHD PAIN IN RIGHT GROIN Discharge Diagnosis ABSCESS AND CELLULITIS OF RIGHT GROIN MRSA ANXIETY/DEPRESSION ADHD PAIN IN RIGHT GROIN ELEVATED LFT'S Reason Hospital Visit PT IS A 30 Y/O MALE WHO IS A PATIENT IN MY CLINIC. HE PRESENTED TO THE OFFICE TODAY WITH COMPLAINT OF SWELLING AND PAIN FROM A SORE IN HIS GROIN ON THE RIGHT. HE HAD A SIMILAR INFECTION ABOUT 3-4 WEEKS AGO - WAS TOLD IT WAS MRSA AND HE WAS GIVEN ORAL ANTIBIOTICS WHICH CAUSED THE LESION TO RESOLVE COMPLETELY. PAYAL REPORTS THAT HE STARTED TO HAVE AN INGROWN HAIR IN HIS GROIN ON THE RIGHT AND THEN IT QUICKLY INCREASED IN SIZE AND DRAINED A LITTLE THEN THIS MORNING IT WAS SIGNIFICANTLY LARGER AND MORE PAINFUL. HE WAS EVALUATED IN THE OFFICE AND IT WAS DETERMINED THAT HE NEEDED IV ANTIBIOTICS FOR TREATMENT OF HIS INFECTION. Discharge Summary Procedures: I AND D AT BEDSIDE Consultations Discharge Physical Examination Allergies: Coded Allergies: No Known Drug Allergies (Unverified , 07/27/20) Vitals & I&Os Vital Signs Date Time Temp Pulse Resp B/P (MAP) Pulse Ox O2 Delivery O2 Flow Rate FiO2 06/05/21 08:47 36.6 70 18 131/76 (94) 97 Room Air General Appearance: Alert, Oriented X3, Cooperative, No Acute Distress HEENT: Atraumatic, PERRLA, Mucous Memb Moist/[place] Respiratory: Clear to Auscultation, Normal Air Movement Cardiovascular: Regular Rate Abdominal: Normal Bowel Sounds, Soft, No Tenderness Extremities: No Clubbing, No Cyanosis Skin: Other (WOUND RIGHT GROIN - IMPROVED SOFTNESS OF TISSUE, LESS ERYTHEMATOUS) Neuro: Cranial Nerves 3-12 NL Psych/Mental Status: Mental Status NL, Mood NL Hospital Course Was the Problem List Reviewed?: Yes ABSCESS AND CELLULITIS OF RIGHT GROIN HX OF MRSA ANXIETY/DEPRESSION ADHD PAIN IN RIGHT GROIN ELEVATED LFT'S ABSCESS AND CELLULITIS OF RIGHT GROIN WITH HX OF HX OF MRSA - IV VANCOMYCIN, PHARMACY TO DOSE BASED ON TROUGH. - MONITOR LABS, RENAL FUNCTION - CULTURE REPORT SHOWS MRSA SENSITIVE TO ORAL BACTRIM - WILL DC PT ON BACTRIM OUTPT, WILL NEED PACKED TUESDAY, TUESDAY AT DAY SURGERY AND TUESDAY AT [facility] OFFICE. TREAT FOR PRESUMED COLONIZATION OF MRSA WITH MUPIROCIN ANXIETY/DEPRESSION - RESTARTED SSRI ADHD - HOLD HOME REGIMEN AT THIS TIME. PAIN IN RIGHT GROIN - IV MORPHINE - WAS Q2 HOURS ON ADMISSION - WILL CHANGE TO IV Q1 HOUR AND ADD HYDROCODONE PRN ORALLY FOR UNCONTROLLED PAIN - WILL EVENTUALLY TRANSITION TO ORAL HYDROCODONE ON DC. ELEVATED LFT'S - MONITOR LABS IN MORNING DVT PROPHYLAXIS WITH LOVENOX AND SCD'S GI PROPHYLAXIS WITH PPI AND PROBIOTICS Pending Labs Laboratory Tests 06/05/21 06:19: White Blood Count 5.4, Red Blood Count 4.43, Hemoglobin 14.0, Hematocrit 40, Mean Corpuscular Volume 90, Mean Corpuscular Hemoglobin 32, Mean Corpuscular Hemoglobin Concent 35, Red Cell Distribution Width 12.3, Platelet Count 259, Mean Platelet Volume 9.7, Sodium Level 135, Potassium Level 3.7, Chloride Level 102, Carbon Dioxide Level 24, Anion Gap 9, Blood Urea Nitrogen 11, Creatinine 0.69, Estimat Glomerular Filtration Rate 137, BUN/Creatinine Ratio 16, Glucose Level 99, Calcium Level 9.7, Corrected Calcium 9.6, Total Bilirubin 0.4, Aspartate Amino Transf (AST/SGOT) 41, Alanine Aminotransferase (ALT/SGPT) 96, Alkaline Phosphatase 80, Total Protein 7.4, Albumin 4.1 Discharge Condition at discharge IMPROVED Instructions to patient/family Please see electronic discharge instructions given to patient. Discharge Medications Reviewed and agree with Discharge Medication list on patient's Discharge Instruction sheet SANKET RED MD Jun 05, 2021 10:50
[2021-06-05] MEDS ORDERED: MUPI22OI2 NSEACH (11:00)
[2021-06-05] MEDS ORDERED: SULF-221 PO (11:00)
[2021-06-05] MEDS ORDERED: LACT1CAP7 PO (11:00)
[2021-06-05] MEDS ORDERED: HYDR-34 PO (11:00)
--- NOTE | 2021-06-05 11:05 | Discharge Inst-Simple/Standard ---
Discharge Inst-Standard Reconcile Patient Problems Problems Reviewed?: Yes Discharge Medications New, Converted or Re-Newed RX: Transmitted to Pharmacy ([facility]) Patient Instructions/Follow Up Plan of Care/Instructions/FU: wound packing with iodoform gauze with 4 x 4 and abd pad over the 4 x 4 gauze - attempt to avoid use of tape to prevent excessive irritation of the skin - to be done tuesday and tuesday at the hospital in day surgery and on Tuesday06/08/[address] Sewell's office with his office to make futher plans on packing. 1 week follow up with [facility] Activity as Tolerated: Yes Discharge Diet: Regular Diet Health Concerns: infected abscess right groin Return to The Hospital For: any worsening in swelling, redness, pain or acute health concerns for lifethreatening illness or injury Medication List: Active Scripts Active Bactrim Ds Tablet (Sulfamethoxazole/Trimethoprim) 1 Each Tablet 1 Each PO BID Mupirocin 22 Gm Oint...g. 0 Gm NSEACH BID 5 Days HYDROcodone/APAP 7.5/325 TAB (Acetaminophen/Hydrocodone Bitart) 1 Ea Tablet 1 Ea PO Q4H PRN for pain from wound in groin Acidophilus-Pectin Capsule (Lactobacillus Acidophilus/Pect) 1 Each Capsule 1 Each PO TID Reported Ibuprofen 200 Mg Tablet 400-600 Mg PO Q8H PRN Escitalopram Oxalate 20 Mg Tablet 20 Mg PO HS Amphetamine Salts 15 mg Tablet (Dextroamphetamine/Amphetamine) 15 Mg Tablet 15 M g PO TID Lab results: Laboratory Tests Test 06/04/21 18:55 06/05/21 06:19 Range/Units Vancomycin Level Trough 9.8 L 10.0-20.0 UG/ML White Blood Count 5.4 4.3-11.0 10^3/uL Red Blood Count 4.43 4.30-5.52 10^6/uL Hemoglobin 14.0 13.3-17.7 g/dL Hematocrit 40 40-54 % Mean Corpuscular Volume 90 80-99 fL Mean Corpuscular Hemoglobin 32 25-34 pg Mean Corpuscular Hemoglobin Concent 35 32-36 g/dL Red Cell Distribution Width 12.3 10.0-14.5 % Platelet Count 259 130-400 10^3/uL Mean Platelet Volume 9.7 9.0-12.2 fL Sodium Level 135 135-145 MMOL/L Potassium Level 3.7 3.6-5.0 MMOL/L Chloride Level 102 98-107 MMOL/L Carbon Dioxide Level 24 21-32 MMOL/L Anion Gap 9 5-14 MMOL/L Blood Urea Nitrogen 11 7-18 MG/DL Creatinine 0.69 0.60-1.30 MG/DL Estimat Glomerular Filtration Rate 137 BUN/Creatinine Ratio 16 Glucose Level 99 70-105 MG/DL Calcium Level 9.7 8.5-10.1 MG/DL Corrected Calcium 9.6 8.5-10.1 MG/DL Total Bilirubin 0.4 0.1-1.0 MG/DL Aspartate Amino Transf (AST/SGOT) 41 H 5-34 U/L Alanine Aminotransferase (ALT/SGPT) 96 H 0-55 U/L Alkaline Phosphatase 80 40-136 U/L Total Protein 7.4 6.4-8.2 GM/DL Albumin 4.1 3.2-4.5 GM/DL SANKET RED MD Jun 05, 2021 11:05
[2021-06-05] MEDS: ENOXAPARIN 40 MG/0.4 ML (LOVENOX) SYR SC SCH (11:53)
[2021-06-05 16:00] VITALS: BP 120/77
[2021-06-05] MEDS ORDERED: VANCOMYCIN INJECTION 1,750 MG in NS IV 500 ML 500 ML IV SCH (17:00)
[2021-06-07] MEDS ORDERED: TROUGH ORDER-PHARMACY XX NR (04:00)
== END 2021-06-05 20:00 | disposition home or self-care (01) | DRG 581 ==
LOC: 4TH 10:37
PROVIDERS: ADMIT Family Medicine; ATTEND Family Medicine
PROC: 0Y950ZZ Drainage of Right Inguinal Region, Open Approach (ICD-10-PCS; principal; 2021-06-03)
DX: L02.214 Cutaneous abscess of groin (principal); L03.314 Cellulitis of groin; F41.9 Anxiety disorder, unspecified; F32.A Depression, unspecified; F90.9 Attention-deficit hyperactivity disorder, unspecified type; B95.62 Methicillin resistant Staphylococcus aureus infection as the cause of diseases classified elsewhere; R74.8 Abnormal levels of other serum enzymes; F17.220 Nicotine dependence, chewing tobacco, uncomplicated
CPT/HCPCS: 36415; 80053; 80202; 85025; 85027; 85610; 87040

== ENCOUNTER 2021-06-08 18:00 | Outpatient (RCR) | payer OTHER ==
[2021-06-06 13:39] VITALS: BP 0/0
[2021-06-07 17:30] VITALS: BP 139/86
[~2021-06-08] VITALS: Ht 177 cm; Wt 99.0 kg
[2021-06-08 17:50] VITALS: BP 133/78
[~2021-06-08 18:00] MED LIST: DEXT15TA PO; ESCI20TA39 PO; HYDR-34 PO; IBUP-2473 PO; LACT1CAP7 PO; MUPI22OI2 NSEACH; SULF-221 PO
== END 2021-06-29 | disposition home or self-care (01) ==
LOC: 4THo 18:00
PROVIDERS: ATTEND Family Medicine
DX: L03.314 Cellulitis of groin (principal); L02.214 Cutaneous abscess of groin
CPT/HCPCS: 99211; 99212

== ENCOUNTER 2021-07-05 09:49 | Outpatient (RCR) | payer OTHER ==
[~2021-07-05] VITALS: Ht 177.8 cm; Wt 99.0 kg
[2021-07-05 10:00] VITALS: BP 130/82
== END 2021-07-05 10:30 | disposition home or self-care (01) ==
LOC: SDC 09:49
PROVIDERS: ATTEND Surgery
DX: L02.214 Cutaneous abscess of groin (principal); L03.314 Cellulitis of groin
CPT/HCPCS: 99212

== ENCOUNTER 2022-01-16 17:14 | Emergency (ER) | payer OTHER ==
[~2022-01-16] VITALS: Ht 177 cm; Wt 91.0 kg
--- NOTE | 2022-01-16 17:43 | ED Abdominal Pain ---
General Chief Complaint: Abdominal/GI Problems Stated Complaint: ABD PAIN Nursing Triage Note: PT STATES LOW ABD PAIN FOR 2-3 DAYS, LAST BM 2 DAYS AGO, DENIES URINARY ISSUES, DENIES NV. Source of Information: Patient Exam Limitations: No Limitations (JOEY SEGURA MD) History of Present Illness Date Seen by Provider: Jan 16, 2022 Time Seen by Provider: 17:32 Initial Comments Patient is a 31-year-old male who presents to the emergency department today with a chief complaint of right lower quadrant abdominal pain onset 2 to 3 days ago. Patient has not taken anything for the pain. He states he has had decreased appetite but no actual nausea. He states in recent weeks he has been trying to eat less. He has been constipated since Tuesday. He normally has a bowel movement every day. He denies burning with urination urgency or frequency. No rashes. He points to the right lower quadrant as the source of his pain. He states it is present and a little bit worse when he walks. At rest he rates the pain at a "5". When he presses on it it is a "9". No fevers or chills. No prior surgeries on his abdomen. All other review of systems reviewed and negative except as stated. Timing/Duration: 2-3 Days Severity/Quality: Moderate, Aching Location: RLQ Radiation: LLQ Modifying Factors: Improves With Lying down; Worsens With Palpation Associated Symptoms: Other (decreased appetite) (JOEY SEGURA MD) Allergies and Home Medications Allergies Coded Allergies: No Known Drug Allergies (Unverified , 07/27/20) Patient Home Medication List Home Medication List Reviewed: Yes (JOEY SEGURA MD) Dextroamphetamine/Amphetamine (Amphetamine Salts 15 mg Tablet) 15 Mg Tablet, 15 MG PO TID, (Reported) Entered as Reported by: ZION LYNNE on 06/03/21 162 Escitalopram Oxalate (Escitalopram Oxalate) 20 Mg Tablet, 20 MG PO HS, (Reported) Entered as Reported by: ZION LYNNE on 06/03/21 1622 Hydrocodone Bit/Acetaminophen (HYDROcodone/APAP 7.5/325 TAB) 1 Ea Tablet, 1 EA PO Q4H PRN for PAIN-MODERATE (5-7) Prescribed by: SANKET RED on 06/05/21 1101 Ibuprofen (Ibuprofen) 200 Mg Tablet, 400-600 MG PO Q8H PRN for PAIN-MILD (1-4), (Reported) Entered as Reported by: ZION LYNNE on 06/03/21 1622 Lactobacillus Acidophilus/Pect (Acidophilus-Pectin Capsule) 1 Each Capsule, 1 EACH PO TID Prescribed by: SANKET RED on 06/05/21 1100 Mupirocin (Mupirocin) 22 Gm Oint...g., 0 GM NSEACH BID Prescribed by: SANKET RED on 06/05/21 1100 Sulfamethoxazole/Trimethoprim (Bactrim Ds Tablet) 1 Each Tablet, 1 EACH PO BID Prescribed by: SANKET RED on 06/05/21 1100 Review of Systems Review of Systems Constitutional: see HPI EENTM: No Symptoms Reported Respiratory: No Symptoms Reported Cardiovascular: No Symptoms Reported Gastrointestinal: Abdominal Pain, Poor Appetite Genitourinary: No Symptoms Reported Musculoskeletal: no symptoms reported Skin: no symptoms reported (JOEY SEGURA MD) All Other Systems Reviewed Negative Unless Noted: Yes (JOEY SEGURA MD) Past Lljqkpe-Ykgbrp-Sgyqkz Hx Patient Social History Tobacco Use?: No Substance use?: No Alcohol Use?: Yes Alcohol type: Beer Alcohol Frequency: Once in a while (JOEY SEGURA MD) Immunizations Up To Date First/Initial COVID19 Vaccinat: JULY 2020 Second COVID19 Vaccination Santos: AUGUST 2020 Third COVID19 Vaccination Date: APRIL 2021 (JOEY SEGURA MD) Seasonal Allergies Seasonal Allergies: No (JOEY SEGURA MD) Past Medical History Surgery/Hospitalization HX: ACL 10 YEARS AGO Surgeries: Yes Orthopedic Respiratory: No Currently Using CPAP: No Currently Using BIPAP: No Cardiac: No Neurological: No Reproductive Disorders: No Sexually Transmitted Disease: No HIV/AIDS: No Genitourinary: No Gastrointestinal: No Musculoskeletal: No Endocrine: No HEENT: No Loss of Vision: Denies Hearing Impairment: Denies Cancer: No Did You Recieve Any Treatments: No Psychosocial: Yes ADD/ADHD, Depression Integumentary: Yes (MRSA infections) (JOEY SEGURA MD) Family Medical History Heart Disease, Hypertension (JOEY SEGURA MD) Physical Exam Vital Signs Vital Signs - First Documented 01/16/22 17:21 Temp 36.5 Pulse 70 Resp 18 B/P (MAP) 127/75 (92) Pulse Ox 98 O2 Delivery Room Air (ASAEL ENGEL ) Vital Signs Capillary Refill : Less Than 3 Seconds (JOEY SEGURA MD) Height/Weight/BMI Height: '" Weight: lbs. oz. kg; 29.00 BMI Method: General Appearance: WD/WN, no apparent distress HEENT: PERRL/EOMI Respiratory: lungs clear, normal breath sounds, no respiratory distress, no accessory muscle use Cardiovascular: regular rate, rhythm Gastrointestinal: soft, abnormal bowel sounds (hypoactive), guarding, rebound, tenderness (RLQ @ Mcburney's point), other (neg Dominique's sign) Neurologic/Psychiatric: alert, normal mood/affect, oriented x 3 Skin: normal color, warm/dry; No rash (JOEY SEGURA MD) Progress/Results/Core Measures Results/Orders Lab Results Laboratory Tests Test 01/16/22 17:35 01/16/22 17:45 Range/Units Urine Color ORANGE Urine Clarity CLEAR Urine pH 6.0 5-9 Urine Specific [place] >=1.030 1.016-1.022 Urine Protein NEGATIVE NEGATIVE Urine Glucose (UA) NEGATIVE NEGATIVE Urine Ketones NEGATIVE NEGATIVE Urine Nitrite NEGATIVE NEGATIVE Urine Bilirubin NEGATIVE NEGATIVE Urine Urobilinogen 0.2 < = 1.0 MG/DL Urine Leukocyte Esterase NEGATIVE NEGATIVE Urine RBC (Auto) NEGATIVE NEGATIVE Urine RBC NONE /HPF Urine WBC 0-2 /HPF Urine Crystals NONE /LPF Urine Bacteria TRACE /HPF Urine Casts NONE /LPF Urine Mucus MODERATE H /LPF Urine Culture Indicated NO White Blood Count 8.8 4.3-11.0 10^3/uL Red Blood Count 4.88 4.30-5.52 10^6/uL Hemoglobin 15.2 13.3-17.7 g/dL Hematocrit 43 40-54 % Mean Corpuscular Volume 89 80-99 fL Mean Corpuscular Hemoglobin 31 25-34 pg Mean Corpuscular Hemoglobin Concent 35 32-36 g/dL Red Cell Distribution Width 12.7 10.0-14.5 % Platelet Count 268 130-400 10^3/uL Mean Platelet Volume 10.8 9.0-12.2 fL Immature Granulocyte % (Auto) 0 % Neutrophils (%) (Auto) 73 42-75 % Lymphocytes (%) (Auto) 15 12-44 % Monocytes (%) (Auto) 9 0-12 % Eosinophils (%) (Auto) 2 0-10 % Basophils (%) (Auto) 0 0-10 % Neutrophils # (Auto) 6.5 1.8-7.8 10^3/uL Lymphocytes # (Auto) 1.4 1.0-4.0 10^3/uL Monocytes # (Auto) 0.8 0.0-1.0 10^3/uL Eosinophils # (Auto) 0.2 0.0-0.3 10^3/uL Basophils # (Auto) 0.0 0.0-0.1 10^3/uL Immature Granulocyte # (Auto) 0.0 0.0-0.1 10^3/uL Percent Immature Platelet Fraction 5.1 0.0-7.6 % Sodium Level 138 135-145 MMOL/L Potassium Level 4.2 3.6-5.0 MMOL/L Chloride Level 104 98-107 MMOL/L Carbon Dioxide Level 20 L 21-32 MMOL/L Anion Gap 14 5-14 MMOL/L Blood Urea Nitrogen 15 7-18 MG/DL Creatinine 0.92 0.60-1.30 MG/DL Estimat Glomerular Filtration Rate 115 BUN/Creatinine Ratio 16 Glucose Level 119 H 70-105 MG/DL Calcium Level 9.7 8.5-10.1 MG/DL (ASAEL EGNEL DO) My Orders Orders - ASAEL ENGEL DO Ua Culture If Indicated (01/16/22 17:56) (ASAEL ENGEL DO) Medications Given in ED Current Medications Medications Dose Ordered Sig/Shane Route Start Time Stop Time Status Last Admin Dose Admin Iohexol 100 ml ONCE ONCE IV 01/16/22 18:00 01/16/22 18:01 DC 01/16/22 18:13 100 ML Ketorolac Tromethamine 15 mg ONCE ONCE IVP 01/16/22 17:45 01/16/22 17:46 DC 01/16/22 17:49 15 MG Ondansetron HCl 4 mg ONCE ONCE IVP 01/16/22 17:45 01/16/22 17:46 DC 01/16/22 17:50 4 MG Sodium Chloride 100 ml ONCE ONCE IV 01/16/22 18:00 01/16/22 18:01 DC 01/16/22 18:13 80 ML (ASAEL ENGEL DO) Vital Signs/I&O 01/16/22 01/16/22 17:21 17:49 Temp 36.5 36.5 Pulse 70 Resp 18 B/P (MAP) 127/75 (92) Pulse Ox 98 O2 Delivery Room Air (ASAEL ENGEL DO) Blood Pressure Mean: 92 Progress Progress Note : Progress Note 1800--ASSUMED CARE FROM DR. SEGURA, CT PENDING. PT HAS BEEN GIVEN TORADOL, WHICH HAS HELPED SOME WITH PAIN. DISCUSSED INCIDENTAL FINDING OF CYST-LIKE STRUCTURE AT [facility] OF HEART, PT IS AWARE, IT WAS NOTED ON PREVIOUS CT SCAN. PT HAS NO CARDIAC COMPLAINTS (ASAEL ENGEL DO) Diagnostic Imaging Comments CT ABDOMEN/PELVIS--PER RADIOLOGIST REPORT AT 1854 FINDINGS: LOWER THORAX: 6.2 x 2.6 cm somewhat crescentic mass at the ventricular cardiac apex favors a cyst, perhaps pericardial cyst. Heart size borderline. Lung bases are clear of infiltrate. LIVER: Unremarkable. GALLBLADDER: Slightly contracted, otherwise unremarkable. SPLEEN: Unremarkable. PANCREAS: Unremarkable. ADRENAL GLANDS: Unremarkable. KIDNEYS: Normal configuration. No calcification or obstruction. ABDOMINAL AORTA: Unremarkable, nonaneurysmal. GASTROINTESTINAL TRACT: Stomach contains a moderate amount of retained gastric contents. No small bowel obstruction. Colon largely decompressed. Normal appendix is located in the right lower quadrant. There is rather prominent focal inflammatory change adjacent to the sigmoid colon greatest towards the left of midline. Questioned colonic wall thickening in this region. Definitive inflamed diverticulum is not suggested. Small amount of pelvic fluid. Fluid does extend across midline to the right. URINARY BLADDER: Relatively decompressed. REPRODUCTIVE: Unremarkable. OSSEOUS STRUCTURES: No acute abnormality. OTHER: None. IMPRESSION: 1. Rather prominent inflammatory change of left pelvis, immediately adjacent sigmoid colon. Imaging features somewhat indeterminate may very well reflect epiploic meningitis. However, the possibility of focal segmental colitis or less likely diverticulitis not excluded. Small amount of fluid is noted likely reactive changes. No definitive drainable abscess collection at this time. 2. Negative for appendicitis. Reviewed: Reviewed by Me (ASAEL ENGEL DO) Departure Communication (Admissions) 1854--SPOKE WITH DR. CHARLES, SURGEON SAFETY PERSON. HE WILL BE DOWN TO SEE PT. 2007--CALLED DR. CHARLES, HE WILL BE DOWN TO SEE PT. 2039--DR. CHARLES HAS SEEN PT, HE ADVISES TO SEND HOME, NO ANTIBIOTICS OR OTHER MEDICATIONS, AND TYLENOL AND MOTRIN NEEDED FOR PAIN. PT MAY FOLLOW UP WITH DR. CHARLES IF SYMPTOMS PERSIST, OR RETURN TO ER IF SYMPTOMS WORSEN. (ASAEL ENGEL DO) Impression Primary Impression: SIGMOID COLON INFLAMMATION Disposition: HOME, SELF-CARE Condition: Stable Departure-Patient Inst. Decision time for Depature: 20:38 (ASAEL ENGEL DO) Referrals: SANKET RED MD (PCP/Family) Primary Care Physician BO CHARLES DO Patient Instructions: Colitis (DC) Add. Discharge Instructions: CLEAR LIQUIDS--WATER, BROTH, JELLO, GATORADE NO FOOD UNTIL YOUR PAIN IS GONE, THEN START BLAND DIET TYLENOL AND MOTRIN NEEDED FOR PAIN RETURN TO ER IF PAIN WORSENS FOLLOW UP WITH DR. CHARLES IF YOUR SYMPTOMS PERSIST. All discharge instructions reviewed with patient and/or family. Voiced understanding. JOEY SEGURA MD Jan 16, 2022 17:43 ASAEL ENGEL DO Jan 16, 2022 18:55
[2022-01-16] MEDS ORDERED: ONDANSETRON 4 MG/2 ML (SDV) Z0FRAN IVP ONE (17:45)
[2022-01-16] MEDS ORDERED: KETOROLAC 30 MG/ML VIAL IVP ONE (17:45)
[2022-01-16] MEDS ORDERED: NS IV 1000 ML 1,000 ML IV SCH (17:45)
[2022-01-16 17:50] LABS: BASOPHILS % (AUTO) 0 % (0-10); NEUTROPHILS % (AUTO) 73 % (42-75)
[2022-01-16 17:52] LABS: EOSINOPHILS # (AUTO) 0.2 10^3/uL (0.0-0.3); EOSINOPHILS % (AUTO) 2 % (0-10); HEMATOCRIT 43 % (40-54); HEMOGLOBIN 15.2 g/dL (13.3-17.7); LYMPHOCYTES # (AUTO) 1.4 10^3/uL (1.0-4.0); LYMPHOCYTES % (AUTO) 15 % (12-44); MEAN CORPUSCULAR HEMOGLOBIN 31 pg (25-34); MEAN CORPUSCULAR HGB CONC 35 g/dL (32-36); MEAN CORPUSCULAR VOLUME 89 fL (80-99); MEAN PLATELET VOLUME 10.8 fL (9.0-12.2); MONOCYTES # (AUTO) 0.8 10^3/uL (0.0-1.0); MONOCYTES % (AUTO) 9 % (0-12); NEUTROPHILS # (AUTO) 6.5 10^3/uL (1.8-7.8); PLATELET COUNT 268 10^3/uL (130-400); WHITE BLOOD COUNT 8.8 10^3/uL (4.3-11.0)
[2022-01-16] MEDS ORDERED: IOHEXOL 350 MG/ML 100 ML (OMNIPAQUE 350) VIAL IV ONE (18:00)
[2022-01-16] MEDS ORDERED: NS 100 ML (IVPB) BAG IV ONE (18:00)
[2022-01-16 18:04] LABS: BILIRUBIN,URINE NEGATIVE (NEGATIVE); CLARITY,URINE CLEAR; COLOR,URINE ORANGE; GLUCOSE, URINE (UA) NEGATIVE (NEGATIVE); KETONES,URINE NEGATIVE (NEGATIVE); LEUKOCYTE ESTERASE ,URINE NEGATIVE (NEGATIVE); NITRITE,URINE NEGATIVE (NEGATIVE); PROTEIN,URINE NEGATIVE (NEGATIVE)
[2022-01-16 18:08] LABS: POTASSIUM 4.2 MMOL/L (3.6-5.0)
[2022-01-16 18:09] LABS: CALCIUM 9.7 MG/DL (8.5-10.1)
[2022-01-16 18:10] LABS: BACTERIA,URINE TRACE /HPF; WBC,URINE 0-2 /HPF
[2022-01-16 18:13] LABS: CREATININE SERUM 0.92 MG/DL (0.60-1.30)
--- NOTE | 2022-01-16 18:49 | Diagnostic Imaging Report ---
PROCEDURE: CT abdomen and pelvis with contrast, rule out appendicitis. TECHNIQUE: Multiple contiguous axial images were obtained through the abdomen and pelvis after the administration of intravenous contrast. All CT scans use one or more of the following dose optimizing techniques: automated exposure control, MA and/or KvP adjustment based on patient size and exam type or iterative reconstruction. INDICATION: 31-year-old male, right lower quadrant pain, sometimes piercing, bloating x 2 days. CORRELATION STUDY: None. FINDINGS: LOWER THORAX: 6.2 x 2.6 cm somewhat crescentic mass at the ventricular cardiac apex favors a cyst, perhaps pericardial cyst. Heart size borderline. Lung bases are clear of infiltrate. LIVER: Unremarkable. GALLBLADDER: Slightly contracted, otherwise unremarkable. SPLEEN: Unremarkable. PANCREAS: Unremarkable. ADRENAL GLANDS: Unremarkable. KIDNEYS: Normal configuration. No calcification or obstruction. ABDOMINAL AORTA: Unremarkable, nonaneurysmal. GASTROINTESTINAL TRACT: Stomach contains a moderate amount of retained gastric contents. No small bowel obstruction. Colon largely decompressed. Normal appendix is located in the right lower quadrant. There is rather prominent focal inflammatory change adjacent to the sigmoid colon greatest towards the left of midline. Questioned colonic wall thickening in this region. Definitive inflamed diverticulum is not suggested. Small amount of pelvic fluid. Fluid does extend across midline to the right. URINARY BLADDER: Relatively decompressed. REPRODUCTIVE: Unremarkable. OSSEOUS STRUCTURES: No acute abnormality. OTHER: None. IMPRESSION: 1. Rather prominent inflammatory change of left pelvis, immediately adjacent sigmoid colon. Imaging features somewhat indeterminate may very well reflect epiploic appendagitis. However, the possibility of focal segmental colitis or less likely diverticulitis not excluded. Small amount of fluid is noted likely reactive changes. No definitive drainable abscess collection at this time. 2. Negative for appendicitis. Dictated by: Dictated on workstation # [id number]
[2022-01-16 20:43] VITALS: BP 122/72
--- NOTE | 2022-01-16 20:55 | Consultation - Surgery ---
History of Present Illness History of Present Illness Patient Consulted On(shirley/time) 01/16/22 20:50 Time Seen by Provider: 20:31 History of Present Illness Surgery asked to consult regarding LLQ pain, Inflammation around sigmoid. HPI per ED: Patient is a 31-year-old male who presents to the emergency department today with a chief complaint of right lower quadrant abdominal pain onset 2 to 3 days ago. Patient has not taken anything for the pain. He states he has had decreased appetite but no actual nausea. He states in recent weeks he has been trying to eat less. He has been constipated since Tuesday. He normally has a bowel movement every day. He denies burning with urination urgency or frequency. No rashes. He points to the right lower quadrant as the source of his pain. He states it is present and a little bit worse when he walks. At rest he rates the pain at a "5". When he presses on it it is a "9". No fevers or chills. No prior surgeries on his abdomen. Patient is a 31-year-old male who complains of abdominal pain across the lower abdomen right and left side possibly more on the left side. He denies any left groin pain he does have a history of a MRSA abscess in the right groin that I actually saw him for and treated. When I saw him he was laying in his bed in the ER in no acute distress resting comfortably stated his pain was good and he felt like he could go home. Patient states nothing has really helped this pain; it is worse when he walks or touches the lower abdomen and with jostling like bumps in the car. Allergies and Home Medications Allergies Coded Allergies: No Known Drug Allergies (Unverified , 07/27/20) Patient Home Medication List Home Medication List Reviewed: Yes Dextroamphetamine/Amphetamine (Amphetamine Salts 15 mg Tablet) 15 Mg Tablet, 15 MG PO TID, (Reported) Entered as Reported by: ZION LYNNE on 06/03/21 162 Escitalopram Oxalate (Escitalopram Oxalate) 20 Mg Tablet, 20 MG PO HS, (Reported) Entered as Reported by: ZION LYNNE on 06/03/21 1622 Hydrocodone Bit/Acetaminophen (HYDROcodone/APAP 7.5/325 TAB) 1 Ea Tablet, 1 EA PO Q4H PRN for PAIN-MODERATE (5-7) Prescribed by: SANKET RED on 06/05/21 1101 Ibuprofen (Ibuprofen) 200 Mg Tablet, 400-600 MG PO Q8H PRN for PAIN-MILD (1-4), (Reported) Entered as Reported by: ZION LYNNE on 06/03/21 1622 Lactobacillus Acidophilus/Pect (Acidophilus-Pectin Capsule) 1 Each Capsule, 1 EACH PO TID Prescribed by: SANKET RED on 06/05/21 1100 Mupirocin (Mupirocin) 22 Gm Oint...g., 0 GM NSEACH BID Prescribed by: SANKET RED on 06/05/21 1100 Sulfamethoxazole/Trimethoprim (Bactrim Ds Tablet) 1 Each Tablet, 1 EACH PO BID Prescribed by: SANKET RED on 06/05/21 1100 Past Bkvgxxs-Mvvovs-Fttbkt Hx Patient Social History Smoking Status: Never a Smoker Type Used: Smokeless Tobacco 2nd Hand Smoke Exposure: No Recent Hopitalizations: No Alcohol Use?: Yes Have you traveled recently?: No Immunizations Up To Date Date of Influenza Vaccine: May 25, 2021 Seasonal Allergies Seasonal Allergies: No Surgeries History of Surgeries: Yes (I&D of right groin) Surgeries: Orthopedic Respiratory History of Respiratory Disorde: No Cardiovascular History of Cardiac Disorders: No Neurological History of Neurological Disord: No Reproductive System Hx Reproductive Disorders: No Sexually Transmitted Disease: No HIV/AIDS: No Genitourinary History of Genitourinary Disor: No Gastrointestinal History of Gastrointestinal Di: No Musculoskeletal History of Musculoskeletal Dis: No Endocrine History of Endocrine Disorders: No HEENT History of HEENT Disorders: No Loss of Vision: Denies Hearing Impairment: Denies Cancer History of Cancer: No Psychosocial History of Psychiatric Problem: Yes Behavioral Health Disorders: ADD/ADHD, Depression Integumentary History of Skin or Integumenta: Yes (MRSA infections) Family Medical History Significant Family History: Heart Disease, Hypertension Review of Systems-General Constitutional: No fever, No malaise EENTM: No blurred vision, No double vision, No epistaxis Respiratory: No cough, No dyspnea on exertion Cardiovascular: No chest pain, No palpitations Gastrointestinal: RLQ, constipation; No dysphagia, No nausea, No vomiting Genitourinary: No dysuria, No frequency, No hematuria Musculoskeletal: No joint pain, No joint swelling, No muscle pain, No muscle stiffness Skin: No change in color, No change in hair/nails Psychiatric/Neurological: Denies Anxiety, Denies Depressed, Denies Seizure, Denies Tremors Physical Exam-General Problems Physical Exam Vital Signs Vital Signs - First Documented 01/16/22 17:21 Temp 36.5 Pulse 70 Resp 18 B/P (MAP) 127/75 (92) Pulse Ox 98 O2 Delivery Room Air Capillary Refill : Less Than 3 Seconds General Appearance: WD/WN, no apparent distress Eyes: Bilateral Eye PERRL, Bilateral Eye EOMI HEENT: pharynx normal; No scleral icterus (R), No scleral icterus (L) Neck: non-tender, supple Respiratory: lungs clear, normal breath sounds, no respiratory distress, no accessory muscle use Cardiovascular: regular rate, rhythm, no murmur Gastrointestinal: soft, no organomegaly, tenderness (b/l lower quadrants), hernia (Left inguinal) Back: no CVA tenderness, no vertebral tenderness Extremities: no pedal edema, no calf tenderness Neurologic/Psychiatric: ton container filler II-XII nml as tested, no motor/sensory deficits, alert, normal mood/affect, oriented x 3 Skin: normal color, warm/dry Lymphatic: no adenopathy (neck, axilla or groin) Data Review Labs Laboratory Tests 01/16/22 17:35: Urine Color ORANGE, Urine Clarity CLEAR, Urine pH 6.0, Urine Specific [place] >=1.030, Urine Protein NEGATIVE, Urine Glucose (UA) NEGATIVE, Urine Ketones NEGATIVE, Urine Nitrite NEGATIVE, Urine Bilirubin NEGATIVE, Urine Urobilinogen 0.2, Urine Leukocyte Esterase NEGATIVE, Urine RBC (Auto) NEGATIVE, Urine RBC NONE, Urine WBC 0-2, Urine Crystals NONE, Urine Bacteria TRACE, Urine Casts NONE, Urine Mucus MODERATEH, Urine Culture Indicated NO 01/16/22 17:45: White Blood Count 8.8, Red Blood Count 4.88, Hemoglobin 15.2, Hematocrit 43, Mean Corpuscular Volume 89, Mean Corpuscular Hemoglobin 31, Mean Corpuscular Hemoglobin Concent 35, Red Cell Distribution Width 12.7, Platelet Count 268, Mean Platelet Volume 10.8, Immature Granulocyte % (Auto) 0, Neutrophils (%) (Auto) 73, Lymphocytes (%) (Auto) 15, Monocytes (%) (Auto) 9, Eosinophils (%) (Auto) 2, Basophils (%) (Auto) 0, Neutrophils # (Auto) 6.5, Lymphocytes # (Auto) 1.4, Monocytes # (Auto) 0.8, Eosinophils # (Auto) 0.2, Basophils # (Auto) 0.0, Immature Granulocyte # (Auto) 0.0, Percent Immature Platelet Fraction 5.1, Sodium Level 138, Potassium Level 4.2, Chloride Level 104, Carbon Dioxide Level 20L, Anion Gap 14, Blood Urea Nitrogen 15, Creatinine 0.92, Estimat Glomerular Filtration Rate 115, BUN/Creatinine Ratio 16, Glucose Level 119H, Calcium Level 9.7 Radiology Date of Exam:01/16/22 CT ABD/PELV W (APPENDICITIS) PROCEDURE: CT abdomen and pelvis with contrast, rule out appendicitis. TECHNIQUE: Multiple contiguous axial images were obtained through the abdomen and pelvis after the administration of intravenous contrast. All CT scans use one or more of the following dose optimizing techniques: automated exposure control, MA and/or KvP adjustment based on patient size and exam type or iterative reconstruction. INDICATION: 31-year-old male, right lower quadrant pain, sometimes piercing, bloating x 2 days. CORRELATION STUDY: None. FINDINGS: LOWER THORAX: 6.2 x 2.6 cm somewhat crescentic mass at the ventricular cardiac apex favors a cyst, perhaps pericardial cyst. Heart size borderline. Lung bases are clear of infiltrate. LIVER: Unremarkable. GALLBLADDER: Slightly contracted, otherwise unremarkable. SPLEEN: Unremarkable. PANCREAS: Unremarkable. ADRENAL GLANDS: Unremarkable. KIDNEYS: Normal configuration. No calcification or obstruction. ABDOMINAL AORTA: Unremarkable, nonaneurysmal. GASTROINTESTINAL TRACT: Stomach contains a moderate amount of retained gastric contents. No small bowel obstruction. Colon largely decompressed. Normal appendix is located in the right lower quadrant. There is rather prominent focal inflammatory change adjacent to the sigmoid colon greatest towards the left of midline. Questioned colonic wall thickening in this region. Definitive inflamed diverticulum is not suggested. Small amount of pelvic fluid. Fluid does extend across midline to the right. URINARY BLADDER: Relatively decompressed. REPRODUCTIVE: Unremarkable. OSSEOUS STRUCTURES: No acute abnormality. OTHER: None. IMPRESSION: 1. Rather prominent inflammatory change of left pelvis, immediately adjacent sigmoid colon. Imaging features somewhat indeterminate may very well reflect epiploic appendagitis. However, the possibility of focal segmental colitis or less likely diverticulitis not excluded. Small amount of fluid is noted likely reactive changes. No definitive drainable abscess collection at this time. 2. Negative for appendicitis. Dictated by: Dictated on workstation # [id number] Dict: 01/16/221816 Trans: 01/16/221945 [facility] [id number] Interpreted by: VIPUL WANG DO Electronically signed by: VIPUL WANG DO 01/16/221945 Assessment/Plan Assessment/Plan Assessment/Plan Lower abdominal pain Inflammation Near Sigmoid Colon I had a long discussion with the patient and his father in the room. He does not appear to have any diverticula and I do not believe this is diverticulitis; does not really have any colon wall thickening. There is some area of the colon which looks like it is narrowed but this could just be the CAT scan catching it as it was peristalsing. I talked to the patient about a possible epiploic appendagitis basically an infarcted epiploica. I explained that this was a piece of fat and hangs off the intestine. I also told him that I thought I saw a left inguinal hernia and is possible that 1 of these epiploica got stuck in there and then fell out. He does have a little bit of fluid in the area on the right side of the colon and this could be why he is having some pain in the right side and suprapubically. I told him that most times this gets better and he would not need any further intervention. I did tell him he had options of going home, spending the night in the hospital or going to the operating room. I did not think the operating room was a good choice; although it is possible in the future if it this gets worse we may have to go in and remove or at least look and possibly remove the infarcted epiploic (if that is what it is). I told him to look out for bloating, distention, vomiting, constipation, fevers, increased pain; these are all bad signs. Otherwise I told him I think he can go home take some ibuprofen or naproxen for pain he has no restrictions except for what his body tells him and he can call me if he needs to or if anything w orsens. I do not think he needs a colonoscopy because I think this is all outside the colon. If anything changes like increased pain increased constipation bowel changes or even hematochezia then we can discuss this but he does not need to follow-up in the office. If he has any questions or concerns he can call me M on-call weekend or in the office. All questions answered his s atisfaction. BO CHARLES DO Jan 16, 2022 20:55
== END 2022-01-16 20:45 | disposition home or self-care (01) ==
LOC: EDUNIT# 17:14 → ER 17:16
DX: K52.9 Noninfective gastroenteritis and colitis, unspecified (principal)
CPT/HCPCS: 36415; 74177; 80048; 81000; 85025